=== PATIENT | male | born 1965 | race African-American/Black ===

== ENCOUNTER 2021-04-25 11:39 | Emergency (ER) | payer MEDICARE, MEDICAID ==
[~2021-04-25] VITALS: Ht 182.9 cm; Wt 79.4 kg
[~2021-04-25 11:39] MED LIST: NORCO 5-325 TA1 EACH PO
[2021-04-25] MEDS ORDERED: SYMBICORT160 MCG/4. INH (11:55)
[2021-04-25] MEDS ORDERED: NORVASC10 MG PO (11:55)
[2021-04-25] MEDS ORDERED: OMEPRAZOLE40 MG PO (11:55)
[2021-04-25] MEDS ORDERED: CHLORPROMAZINE10 M1 PO (11:56)
[2021-04-25 12:20] LABS: ABSOLUTE BASOPHILS 0.1 thou/uL (0.0-0.2); ABSOLUTE EOSINOPHILS 0.1 thou/uL (0.0-0.7); ABSOLUTE LYMPHOCYTES 2.8 thou/uL (0.8-5.3); ABSOLUTE MONOCYTES 0.9 thou/uL (0.0-1.2); ABSOLUTE NEUTROPHILS 5.7 thou/uL (1.6-8.1); BASOPHILS 1.3 %; EOSINOPHILS 0.8 %; HEMATOCRIT 39.7 % (42.0-52.0); HEMOGLOBIN 13.6 gm/dL (14.0-18.0); LYMPHOCYTES 28.6 %; MCH 36.8 pg (26.0-34.0); MCHC 34.3 g/dL (28.0-37.0); MCV 107.4 fL (80.0-100.0); MONOCYTES 9.8 %; MPV 6.5 fl. (7.2-11.1); NUCLEATED RBCS 0 /100WBC; PLATELET COUNT* 211 thou/uL (150-400); POLYS 59.5 %; RDW-CV 14.4 % (10.5-14.5); WBC 9.6 thou/uL (4.0-11.0)
[2021-04-25 12:30] LABS: CALCIUM 7.8 mg/dL (8.5-10.1); CREATININE 0.9 mg/dL (0.6-1.3)
[2021-04-25 12:34] LABS: ALBUMIN 3.5 g/dL (3.4-5.0); TOTAL BILIRUBIN 0.5 mg/dL (<0.1-1.0); TOTAL PROTEIN 7.1 g/dL (6.4-8.2)
[2021-04-25 12:37] LABS: MAGNESIUM 0.9 mg/dL (1.8-2.4); POTASSIUM 2.6 mmol/L (3.5-5.1)
[2021-04-25 14:12] VITALS: BP 121/83
--- NOTE | 2021-04-25 16:05 | EKG ---
[place] [address] ELECTROCARDIOGRAM REPORT Name: ALYCIA CHAUHAN Room: 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: [facility] : 1965 Requested By: Osito Little Order Number: [id number] MD: Fracisco Coley Measurements Intervals [place] Rate: 127 P: 76 MI: 138 QRS: 78 QRSD: 80 T: 33 QT: 289 QTc: 421 Interpretive Statements Sinus tachycardia with consecutive premature atrial contractions Probable LVH with secondary repol abnrm No previous ECG available for comparison Electronically Signed On 04-25-2021 16:05:24 CDT by Fracisco Coley [email or web address] <ELECTRONICALLY SIGNED> By: Fracisco Coley MD, [facility] 04/25/21 7540 1200 1200 Fracisco Coley MD, [facility] /EPI
--- NOTE | 2021-04-25 16:06 | EKG ---
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: [facility] : 1965 Requested By: Osito Little Order Number: [id number] MD: Fracisco Coley Measurements Intervals [place] Rate: 99 P: 82 CT: 144 QRS: 83 QRSD: 81 T: 11 QT: 342 QTc: 439 Interpretive Statements Sinus rhythm Borderline repolarization abnormality Baseline wander in lead(s) I,II,aVR,V5 Compared to ECG 04/25/2021 12:00:24 Sinus tachycardia no longer present Electronically Signed On 04-25-2021 16:06:04 CDT by Fracisco Coley [email or web address] <ELECTRONICALLY SIGNED> By: Fracisco Coley MD, [facility] 04/25/21 1606 1318 1318 Fracisco Coley MD, [facility] /EPI
== END 2021-04-25 14:16 | disposition home or self-care (01) ==
LOC: M.ERS 11:39
PROVIDERS: Emergency Medicine
DX: F10.229 Alcohol dependence with intoxication, unspecified (principal); E87.6 Hypokalemia; E83.42 Hypomagnesemia; I10 Essential (primary) hypertension; F17.210 Nicotine dependence, cigarettes, uncomplicated; J44.9 Chronic obstructive pulmonary disease, unspecified; Z79.899 Other long term (current) drug therapy; Y90.6 Blood alcohol level of 120-199 mg/100 ml

== ENCOUNTER → 2021-04-27 | Outpatient (CLI) | payer MEDICARE, MEDICAID ==
[~2021-04-27] MED LIST changes: +CHLORPROMAZINE10 M1 PO; +NORVASC10 MG PO; +OMEPRAZOLE40 MG PO; +SYMBICORT160 MCG/4. INH
== END ==
LOC: M.RAD 14:35
PROVIDERS: ATTEND Nurse Practitioner Family
DX: M16.11 Unilateral primary osteoarthritis, right hip (principal); Z96.642 Presence of left artificial hip joint

== ENCOUNTER → 2021-05-12 | Outpatient (CLI) | payer MEDICARE, MEDICAID | LOC: M.ULTRA 10:17 | PROVIDERS: ATTEND Nurse Practitioner Family | DX: I82.442 Acute embolism and thrombosis of left tibial vein (principal); I82.452 Acute embolism and thrombosis of left peroneal vein ==